=== PATIENT | female | born 1985 | race Caucasian/White ===

== ENCOUNTER 2023-10-22 03:04 | Inpatient (IN) | payer MEDICAID ==
[~2023-10-22] VITALS: Ht 167.6 cm; Wt 86.4 kg
[2023-10-22] VITALS (14 sets, daily range): BP systolic 102–141; BP diastolic 49–106; PULSE 87–114; TEMP 98–98.3
[~2023-10-22 03:04] MED LIST: EUTHYROX25 MCG; PRENATAL TABLET PO; PRENATAL1 TA1 PO; ZOLOFT 50MG50 MG PO
--- NOTE | 2023-10-22 03:20 | NUR ---
G5L3. 40-4. Ambulatory to LDR 4 with spouse. EFM and TOCO explained and applied. Pt states she "I have been in and out of labor for 2 weeks now but my contractions for the last 2 hours have been very painful." Denies leaking of fluids or vaginal bleeding. Reports good movement. Plan of care explained to pt who verbalizes her understanding. 0405: called and updated on pt's status. See physican notification. Pt updated on new plan of care.
[2023-10-22] MEDS ORDERED: SYNTHROID0.112 MG/T PO (03:39)
[2023-10-22] MEDS ORDERED: LR 1,000 ML IV PRN (04:15)
--- NOTE | 2023-10-22 04:36 | NUR ---
[id number]: Pt stating at edge of bed and bending over when having a contraction and tracing maternal heart rate. Monitors adjusted.
--- NOTE | 2023-10-22 08:01 | NUR ---
PT COMPLETE AT 0751 PER . PUSHING INTERMITTENTLY. 0801 OF VIABLE MALE PER . PT TOLERATED WELL. APGARS 8,9,9. INFANT PLACED ON MATERNAL ABDOMEN AND CARE ASSUMED BY NURSERY RN. 0809 OF PLACENTA PER . LOCHIA WNL, VS STABLE, PITOCIN BOLUS STARTED PER PROTOCOL. NO LACERATIONS NOTED. ROOM PUT BACK TOGETHER, ICE PACK PAD PLACED, FUNDUS FIRM.
[2023-10-22] MEDS ORDERED: LR 1,000 ML IV SCH (08:30)
[2023-10-22] MEDS ORDERED: Witch Hazel 50% Pads Bulk TUB TP PRN (08:45)
[2023-10-22] MEDS ORDERED: Magnes Hydrox (MOM) 80 MG/ML 30 ML CUP PO PRN (08:45)
[2023-10-22] MEDS ORDERED: Acetaminophen 500 MG TAB PO SCH (08:45)
[2023-10-22] MEDS ORDERED: Mag/Al Hydrox/Simeth Susp 30 ML CUP PO PRN (08:45)
[2023-10-22] MEDS ORDERED: Ibuprofen 800 MG TAB PO SCH (08:45)
[2023-10-22] MEDS ORDERED: Loratadine 10 MG TAB PO PRN (08:45)
[2023-10-22] MEDS ORDERED: Measles/Mumps/Rubella Virus Vaccine Live w Diluent 0.5 ML VIAL SQ SCH (08:45)
[2023-10-22] MEDS ORDERED: Phenylephrine/Mineral Oil/Petrolatum 57 GM TUBE RC PRN (08:45)
[2023-10-22] MEDS ORDERED: Naloxone 0.4 MG/ML VIAL IV PRN (08:45)
[2023-10-22 09:47] LABS: BASO # 0.1 K/mm3 (0.0-0.2); BASO % 0.5 % (0.0-2.0); EOS # 0.2 K/mm3 (0.0-0.7); EOS % 1.3 % (0.0-4.0); GRAN # 11.6 K/mm3 (1.4-6.5); GRAN % 76.8 % (42.2-75.2); HEMATOCRIT 37.9 % (37.0-47.0); HEMOGLOBIN 12.8 g/dl (12.5-16.0); LYMPH # 2.1 K/mm3 (1.2-3.4); LYMPH % 13.9 % (20.0-51.0); MEAN CELL VOLUME 91 fl (80.0-100.0); MEAN CORPUSCULAR HEMOGLOBIN 31 pg (27-31); MEAN CORPUSCULAR HGB CONC 34 g/dl (33.0-37.0); MEAN PLATELET VOLUME 12.5 fl (7.4-10.4); MONO # 1.1 K/mm3 (0.1-0.6); MONO % 7.1 % (1.7-9.3); PLATELET COUNT 360 K/mm3 (130-400); RED BLOOD COUNT 4.19 M/mm3 (4.10-5.30); REDCELL DISTRIBUTION WIDTH-CV 13.5 % (11.5-14.5)
--- NOTE | 2023-10-22 11:20 | NUR ---
PT AMBULATORY TO PP ROOM AFTER VOIDING, CHANGING GOWN, PAD AND PANTIES. PT STEADY AND COMFORTABLE.
[2023-10-22] MEDS ORDERED: Sennosides/Docusate 8.6-50 MG TAB PO SCH (17:00)
[2023-10-22] MEDS ORDERED: traZODone 50 MG TAB PO PRN (21:00)
[2023-10-23 07:33] VITALS: BP 112/60; PULSE 95; TEMP 98.3
[2023-10-23] MEDS ORDERED: IBU800 M1 PO (09:42)
== END 2023-10-23 11:20 | disposition home or self-care (01) | DRG 807 ==
LOC: LDRO 03:04 → LDR 08:23 → OB 11:30
PROVIDERS: ADMIT Student in an Organized Health Care Education/Training Program
PROC: 10E0XZZ Delivery of Products of Conception, External Approach (ICD-10-PCS; principal; 2023-10-22)
DX: O48.0 Post-term pregnancy (principal); Z37.0 Single live birth; Z3A.40 40 weeks gestation of pregnancy; O76 Abnormality in fetal heart rate and rhythm complicating labor and delivery; O99.344 Other mental disorders complicating childbirth; F41.9 Anxiety disorder, unspecified; O99.284 Endocrine, nutritional and metabolic diseases complicating childbirth; E03.9 Hypothyroidism, unspecified; O71.82 Other specified trauma to perineum and vulva; O34.211 Maternal care for low transverse scar from previous cesarean delivery; E55.9 Vitamin D deficiency, unspecified; Z86.16 Personal history of COVID-19; Z79.890 Hormone replacement therapy